=== PATIENT | male | born 1945 | race Caucasian/White ===

== ENCOUNTER 2023-10-09 13:28 | Emergency (ER) | payer OTHER ==
[~2023-10-09] VITALS: Ht 172.7 cm; Wt 69.4 kg
[2023-10-09] MEDS ORDERED: LISINOPRIL40 MG PO (13:49)
[2023-10-09] MEDS ORDERED: BUSPIRONE HCL10 MG PO (13:50)
[2023-10-09] MEDS ORDERED: PRAVASTATIN SOD40 MG PO (13:51)
[2023-10-09] MEDS ORDERED: BREZTRI AEROS10.7 GM INH (13:51)
[2023-10-09] MEDS ORDERED: AMLODIPINE BESYL5 MG PO (13:52)
[2023-10-09] MEDS ORDERED: FOSRENOL500 MG PO (13:52)
[2023-10-09] MEDS ORDERED: FINASTERIDE5 M1 PO (13:53)
[2023-10-09] MEDS ORDERED: FLOMAX0.4 MG PO (13:53)
[2023-10-09] MEDS ORDERED: ELIQUIS2.5 M1 PO (13:53)
[2023-10-09] MEDS ORDERED: COREG12.5 M1 PO (13:54)
[2023-10-09] MEDS ORDERED: OMEPRAZOLE MAGN20 MG PO (13:54)
[2023-10-09] MEDS ORDERED: Tdap Vaccine 0.5 ML SYR (Adult Vaccine) IM ONE (13:55)
[2023-10-09] MEDS ORDERED: IMDUR SA30 MG PO (13:55)
[2023-10-09] MEDS ORDERED: NEURONTIN100 MG PO ×2 (13:56→13:57)
[2023-10-09] MEDS ORDERED: ARTIFICIAL TEAR1514 OP (13:56)
[2023-10-09] MEDS ORDERED: MAXIMUM D3325 MCG PO (13:57)
[2023-10-09] MEDS ORDERED: ACETAMINOPHEN 325 MG TAB PO ONE (15:30)
== END 2023-10-09 15:41 | disposition home or self-care (01) ==
LOC: ED 13:28
DX: S00.01XA Abrasion of scalp, initial encounter (principal); S09.8XXA Other specified injuries of head, initial encounter; I12.9 Hypertensive chronic kidney disease with stage 1 through stage 4 chronic kidney disease, or unspecified chronic kidney disease; E11.22 Type 2 diabetes mellitus with diabetic chronic kidney disease; N18.9 Chronic kidney disease, unspecified; Z79.4 Long term (current) use of insulin; W05.2XXA Fall from non-moving motorized mobility scooter, initial encounter; Y93.I9 Activity, other involving external motion; Y92.321 Football field as the place of occurrence of the external cause; Y99.8 Other external cause status